=== PATIENT | female | born 1960 | race Caucasian/White ===

== ENCOUNTER 2017-01-16 14:16 | Day surgery (SDC) | payer MEDICARE, OTHER ==
[2017-01-11 14:33] VITALS: BMI 30.9
[2017-01-16] MEDS ORDERED: LIDOCAINE HCL 2% (20ML MULTI-DOSE VIAL) NR ONE (15:05)
[2017-01-16] MEDS ORDERED: MIDAZOLAM HCL 2 MG/2 ML SINGLE DOSE VIAL ONE (15:09)
[2017-01-16] MEDS ORDERED: PROPOFOL 20 ML ONE (15:09)
[2017-01-16 17:45] VITALS: BP 110/61; PULSE 65; TEMP 98
--- NOTE | 2017-01-17 11:34 | OP ---
DATE OF OPERATION: 01/16/2017 PREOPERATIVE DIAGNOSIS: 1. Left thumb trigger-finger. 2. Left long trigger-finger. 3. Left ring trigger-finger. POSTOPERATIVE DIAGNOSIS: 1. Left thumb trigger-finger. 2. Left long trigger-finger. 3. Left ring trigger-finger. OPERATIVE PROCEDURE: 1. Left thumb trigger-finger release. 2. Left long trigger-finger release. 3. Left ring trigger-finger release. SURGEON: Ayad Bajwa MD ANESTHESIA: Local with sedation. COMPLICATIONS: None. ESTIMATED BLOOD LOSS: Minimal. INDICATIONS FOR PROCEDURE: The patient is a 56-year-old female with the above findings, indicated for operative treatment. The risks, benefits, and alternatives were discussed with the patient at length. Proper informed consent was obtained. DESCRIPTION OF PROCEDURE: After proper identification of the patient and the correct operative site, the patient was brought to the operating room and placed supine on the operating room table. All bony prominences were well padded. Sedation was given by the anesthesiologist; local anesthesia was given with 2% lidocaine. Left upper extremity was prepped and draped in the usual sterile fashion. A well-padded tourniquet was placed with a sterile prep. Esmarch bandage was used to exsanguinate the left upper extremity. A tourniquet was inflated to 250 mmHg. A transverse incision was made over the A1 sean to the thumb. Incision was taken sharply through the skin with blunt dissection through subcutaneous tissues. A1 sean was identified and divided longitudinally. Attention was then turned to the long and ring fingers, where longitudinal incisions were made over the A1 sean to each of these digits. Incisions were taken sharply through the skin with blunt and sharp dissection through subcutaneous tissues down to the level of the A1 sean. A1 sean was divided at each of these fingers. Patient was then asked to flex and extend all of her digits, and no further triggering was noted. Wound was irrigated with copious amounts of normal saline and repaired with a 5-0 nylon suture. Sterile dressings were applied. Patient was reversed from anesthesia and brought to the recovery room in stable condition. She tolerated the procedure well. AYAD BAJWA M.D. [id number]
== END 2017-01-16 16:45 | disposition home or self-care (01) ==
LOC: FASU 14:16
PROVIDERS: ATTEND Orthopaedic Surgery Hand Surgery
PROC: 0LN80ZZ Release Left Hand Tendon, Open Approach (ICD-10-PCS; 2017-01-16)
PROC: 0LN80ZZ Release Left Hand Tendon, Open Approach (ICD-10-PCS; 2017-01-16)
PROC: 0LN80ZZ Release Left Hand Tendon, Open Approach (ICD-10-PCS; principal; 2017-01-16 15:31)
DX: M65.312 Trigger thumb, left thumb (principal); M65.332 Trigger finger, left middle finger; M65.342 Trigger finger, left ring finger

== ENCOUNTER 2017-08-14 05:58 | Day surgery (SDC) | payer OTHER ==
[2017-08-09 11:50] VITALS: BMI 26.4
[2017-08-14] MEDS ORDERED: MIDAZOLAM HCL 2 MG/2 ML SINGLE DOSE VIAL ONE ×2 (07:14→07:16)
[2017-08-14] MEDS ORDERED: ePHEDrine SULFATE 50 MG/1 ML AMPULE ONE (07:14)
[2017-08-14] MEDS ORDERED: PROPOFOL 20 ML ONE ×6 (07:14→07:16)
[2017-08-14] MEDS ORDERED: LIDOCAINE HCL 2% (20ML MULTI-DOSE VIAL) NR ONE (07:15)
[2017-08-14] MEDS ORDERED: SUCCINYLCHOLINE CHLORIDE 200 MG/10 ML VIAL ONE (07:18)
[2017-08-14] MEDS ORDERED: KETOROLAC TROMETHAMINE 30 MG/1 ML VIAL ONE (07:32)
[2017-08-14 08:19] VITALS: PULSE 58; TEMP 98.1
[2017-08-14] MEDS ORDERED: ACETAMINOPHEN 325 MG TABLET (FP) PO PRN (08:41)
[2017-08-14] MEDS ORDERED: oxyCODONE HCL 5 MG TABLET PO PRN (08:41)
[2017-08-14] MEDS ORDERED: ONDANSETRON 4 MG/2 ML VIAL IVPUSH PRN (08:41)
[2017-08-14] MEDS ORDERED: LACTATED RINGERS SOLUTION 1,000 ML IV SCH (08:45)
[2017-08-14 08:59] VITALS: BP 116/70
--- NOTE | 2017-08-16 08:18 | OP ---
DATE OF OPERATION: 08/14/2017 PREOPERATIVE DIAGNOSES: 1. Right long trigger finger. 2. Right ring trigger finger. POSTOPERATIVE DIAGNOSES: 1. Right long trigger finger. 2. Right ring trigger finger. OPERATIVE PROCEDURE: 1. Right long trigger finger release. 2. Right ring trigger finger release. SURGEON: Ayad Bajwa MD ANESTHESIA: Local with sedation. COMPLICATIONS: None. ESTIMATED BLOOD LOSS: Minimal. INDICATION FOR PROCEDURE: The patient is a 57-year-old female with the above findings, indicated for operative treatment. Risks, benefits, and alternatives were discussed with the patient at length. Proper informed consent was obtained. Of note, the initial chart had stated that this was the left hand. However, this is incorrect and confirmed by the patient. The left hand had already been operated on and today we are proceeding with the right long and ring trigger finger releases. I did examine the patient preoperatively and again confirmed that these fingers were triggering and she desired to proceed with right long and ring trigger finger releases. PROCEDURE: After proper identification of patient and correct operative site, patient was brought to the operating room and placed supine on the operating table. All prominences were well padded. Sedation was given by the anesthesiologist. Local anesthesia was given with 2% lidocaine. The right upper extremity was prepped and draped in the usual sterile fashion. A well-padded tourniquet was placed with a sterile prep. Esmarch bandage used to exsanguinate the right upper extremity. Tourniquet was inflated to 250 mmHg. A longitudinal incision was made over the A1 sean of the long and ring fingers. Incision was then taken sharply through the skin, with blunt and sharp dissection through subcutaneous tissues. A1 pulleys were identified and divided longitudinally. Patient was asked to flex and extend her finger and no further triggering was noted. Wounds were repaired with 5-0 nylon suture. Sterile dressings were applied. Patient was reversed from anesthesia and brought to the recovery room in stable condition. She tolerated the procedure well. AYAD BAJWA M.D. [id number]
== END 2017-08-14 09:02 | disposition home or self-care (01) ==
LOC: FASU 05:58
PROVIDERS: ATTEND Orthopaedic Surgery Hand Surgery
PROC: 0LN70ZZ Release Right Hand Tendon, Open Approach (ICD-10-PCS; 2017-08-14)
PROC: 0LN70ZZ Release Right Hand Tendon, Open Approach (ICD-10-PCS; principal; 2017-08-14 07:39)
DX: M65.331 Trigger finger, right middle finger (principal); M65.341 Trigger finger, right ring finger

== ENCOUNTER → 2018-11-05 | Day surgery (SDC) | payer OTHER | LOC: FASU 08:15 ==